=== PATIENT | female | born 1965 | race Caucasian/White ===

== ENCOUNTER → 2017-01-08 | Outpatient (CLI) | payer BC ==
[~2017-01-08] MED LIST: ASPIRIN81 M2 PO; LEVOXYL100 MC1; LEVOXYL100 MCG PO; LISINOPRIL; PRINIVIL5 MG PO; ZOCOR20 MG PO
--- NOTE | ~2017-01-08 | MY11 ---
[facility] A Service of [facility] & [facility] RADIOLOGY TEXT RESULTS PATIENT: AIDAN BOCANEGRA LOCATION: [facility] : 63 UNIT #: [id number] AGE: [address]: Holger Mario MD SEX: F ORDER DR: [id number] [facility] [address]. [place], [place] [address] [id number] O MR#: [id number] Acc #: [id number] NAME: AIDAN BOCANEGRA : 1965 SEX: F STUDY DATE/TIME: 01/08/2017 12:28 UNIT: [facility] ROOM: STUDY DESCRIPTION: MY Mammogram Screening Dig Babak Attending Physician: Raeann Mario M.D. Referring Physician: Raeann Mario M.D. Primary Care Physician: Raeann Mario M.D. MEDICAL IMAGING REPORT This report is preliminary unless electronic signature is present EXAM Screening mammogram 01/08 INDICATIONS 51-year-old with a personal history of left-side breast cancer. No family history. No current complaints. FINDINGS Digital CC and MLO views of both breasts were obtained in addition to a left exaggerated CC view. Study reviewed with an FDA-approved CAD device. Comparison made with 05/25/2015, 04/21/2014, 07/13/2012, and 06/23/2011. Left breast shows scattered fibroglandular densities. The left lumpectomy bed is stable. The right breast is heterogeneously dense. No suspicious microcalcifications in either breast. Benign calcifications in both breasts are stable. There is a partially obscured 8 mm nodule in the upper right breast on the MLO view. Patient has had cysts in this area. Followup with spot compression views and a true lateral view recommended. Ultrasound may be needed. IMPRESSION 1. Benign left mammogram. 2. Potentially new 8 mm partially obscured nodular asymmetry in the upper right breast. Additional imaging recommended. Patients over the age of 40 are entered into a reminder system with target due date for the next mammogram. A result letter will also be sent to the patient. BIRADS: 0. Incomplete; Need additional imaging evaluation and/or prior mammograms for comparison. STS. [facility] A Service of [facility] & [facility] RADIOLOGY TEXT RESULTS PATIENT: AIDAN BOCANEGRA LOCATION: [facility] : 63 UNIT #: [id number] AGE: [address]: Holger Mario MD SEX: F ORDER DR: Dictated by... Fernie Villarreal Jr., M.D. THIS IS AN ELECTRONICALLY VERIFIED REPORT Fernie Villarreal Jr., M.D. at 01/09/2017 3:49 PM ASH/hailey TD: 01/08/2017 14:25 JOB #: [id number] MEDICAL IMAGING REPORT Page 1 of 1 COPY
== END | disposition home or self-care (01) ==
LOC: CWCC 12:10
DX: Z12.31 Encounter for screening mammogram for malignant neoplasm of breast (principal); Z85.3 Personal history of malignant neoplasm of breast; N63 Unspecified lump in breast
CPT/HCPCS: G0202

== ENCOUNTER → 2017-01-14 | Outpatient (CLI) | payer BC ==
--- NOTE | ~2017-01-14 | US24 ---
[facility] A Service of [facility] & [facility] RADIOLOGY TEXT RESULTS PATIENT: AIDAN BOCANEGRA LOCATION: [facility] : 63 UNIT #: [id number] AGE: [address]: Holger Mario MD SEX: F ORDER DR: [id number] [facility] [address] [place], [place] [address] [id number] O MR#: [id number] Acc #: [id number] NAME: AIDAN BOCANEGRA : 1965 SEX: F STUDY DATE/TIME: 01/14/2017 15:24 UNIT: [facility] ROOM: STUDY DESCRIPTION: US Breast Unilateral Attending Physician: Holger Mario Ordering Physician: Holger Mario Primary Care Physician: Holger Mario MEDICAL IMAGING REPORT This report is preliminary unless electronic signature is present EXAM Right breast ultrasound 01/14 INDICATIONS Abnormal mammogram demonstrating a partially obscured nodule in the upper outer right breast. History of breast cancer in the contralateral breast. FINDINGS For a full report, please see mammogram report dated 01/14/2017. Patients over the age of 40 are entered into a reminder system with target due date for the next mammogram. A result letter will also be sent to the patient. BIRADS: 2, benign findings. Dictated by... Fernie Villarreal Jr., M.D. THIS IS AN ELECTRONICALLY VERIFIED REPORT Fernie Villarreal Jr., M.D. at 01/16/2017 8:45 PM ASH/hailey TD: 01/14/2017 17:19 JOB #: [id number] MEDICAL IMAGING REPORT Page 1 of 1 COPY
--- NOTE | ~2017-01-14 | MY8 ---
[facility] A Service of [facility] RADIOLOGY TEXT RESULTS PATIENT: AIDAN BOCANEGRA LOCATION: [facility] : 63 UNIT #: [id number] AGE: [address]: Holger Mario MD SEX: F ORDER DR: [id number] [id number] [facility]. [place], [place] [address] [id number] O MR#: [id number] Acc #: [id number] NAME: AIDAN BOCANEGRA : 1965 SEX: F STUDY DATE/TIME: 01/14/2017 15:14 UNIT: [facility] ROOM: STUDY DESCRIPTION: MY Mammogram Dx Dig Rt Attending Physician: Holger Mario Ordering Physician: Holger Mario Primary Care Physician: Holger Mario MEDICAL IMAGING REPORT This report is preliminary unless electronic signature is present EXAM Right diagnostic mammogram. DATE OF EXAM 01/14/2017 INDICATIONS New partially obscured nodule seen on recent screening mammogram. Patient has history of breast cancer in the contralateral breast. TECHNIQUE Digital spot compression right CC and MLO views were obtained in addition to a right true lateral view. Study was reviewed with an FDA-approved CAD device. COMPARISON Comparison is made with 01/08/2017, 05/25/2015, and 04/21/2014. FINDINGS Additional imaging today confirms the presence of a partially obscured nodule in the upper/outer breast in the anterior middle third. It measures approximately 8 mm in size. No associated microcalcifications. Ultrasound was performed. Ultrasound demonstrates 2 adjacent cysts at the 11 o'clock position, 3 cm from the nipple with an overall measurement of up to 1.3 cm. There is an additional cysts at 11 o'clock 1 cm from the nipple measuring 9 mm in greatest dimension. There is a third periareolar cyst at about 12 o'clock measuring up to 1.4 cm in greatest dimension. No solid nodules are identified. Findings were discussed with the patient at the time of her examination today. IMPRESSION Benign mammogram and targeted right ultrasound. Mammogram and ultrasound findings correspond to benign cysts. Patient should continue with routine [facility] A Service of [facility] RADIOLOGY TEXT RESULTS PATIENT: AIDAN BOCANEGRA [id number] : [birth year] UNIT #: [id number] AGE: [address]: Holger Mario MD SEX: F ORDER DR: yearly mammographic screening. Patients over the age of 40 are entered into a reminder system with target due date for the next mammogram. A result letter will also be sent to the patient. BIRADS: 2 Benign findings. Dictated by... Fernie Villarreal Jr., M.D. THIS IS AN ELECTRONICALLY VERIFIED REPORT Fernie Villarreal Jr., M.D. at 01/15/2017 6:10 AM ASH/daylin TD: 01/14/2017 17:29 JOB #: [id number] MEDICAL IMAGING REPORT Page 1 of 1 COPY
== END | disposition home or self-care (01) ==
LOC: CMAM 14:54
DX: N63 Unspecified lump in breast (principal)
CPT/HCPCS: 76641; G0206

== ENCOUNTER 2017-04-29 01:07 | Emergency (ER) | payer BC ==
[~2017-04-29] VITALS: Ht 162.6 cm; Wt 63.5 kg
== END 2017-04-29 02:07 | disposition home or self-care (01) ==
LOC: SED 01:07
DX: J02.9 Acute pharyngitis, unspecified (principal); F17.200 Nicotine dependence, unspecified, uncomplicated; Z79.899 Other long term (current) drug therapy; Z88.1 Allergy status to other antibiotic agents; Z91.040 Latex allergy status; Z91.018 Allergy to other foods
CPT/HCPCS: 87880; 99283